=== PATIENT | female | born 2000 | race Caucasian/White ===

== ENCOUNTER → 2021-10-24 | Outpatient (CLI) | payer OTHER ==
[~2021-10-24] MED LIST: MOTRIN 400400 MG/TAB PO; TYLENOL 325MG325 MG PO
== END ==
LOC: COL.VAS 13:30
DX: R00.0 Tachycardia, unspecified (principal)

== ENCOUNTER 2021-11-08 05:15 | Inpatient (IN) | payer OTHER ==
[2021-11-08] VITALS (43 sets, daily range): BP systolic 101–138; BP diastolic 55–88; PULSE 82–123; TEMP 97.5–98.1
[~2021-11-08] VITALS: Ht 157.5 cm; Wt 66.4 kg
[2021-11-08 08:23] LABS: BASO % 0.3 % (0.0-2.0); EOS % 0.1 % (0.0-4.0); HEMATOCRIT 39.3 % (37.0-47.0); HEMOGLOBIN 13.1 g/dl (12.5-16.0); LYMPH # 1.8 K/mm3 (1.2-3.4); LYMPH % 17.1 % (20.0-51.0); MEAN CELL VOLUME 83 fl (80.0-100.0); MEAN CORPUSCULAR HEMOGLOBIN 28 pg (27-31); MEAN CORPUSCULAR HGB CONC 33 g/dl (33.0-37.0); MONO # 0.6 K/mm3 (0.1-0.6); MONO % 5.5 % (1.7-9.3); PLATELET COUNT 332 K/mm3 (130-400); RED BLOOD COUNT 4.73 M/mm3 (4.10-5.30); REDCELL DISTRIBUTION WIDTH-CV 18.3 % (11.5-14.5)
[2021-11-08 08:28] LABS: TRICYCLIC ANTIDEPRESS URINE NEGATIVE
[2021-11-08] MEDS ORDERED: PRENATAL TABLET PO (10:55)
[2021-11-08] MEDS ORDERED: NATURAL IRON65 MG PO (10:56)
[2021-11-08] MEDS ORDERED: COLACE 100100 MG/CAP PO (10:57)
[2021-11-09 04:00] VITALS: BP 98/53; PULSE 110; TEMP 98.4
[2021-11-09] MEDS ORDERED: MOTRIN 800800 MG/TAB PO (05:59)
[2021-11-09 09:00] VITALS: BP 114/72; PULSE 101; TEMP 97.3
[2021-11-09 17:00] VITALS: BP 95/60; PULSE 87; TEMP 97.7
[2021-11-09 20:45] VITALS: BP 94/54; PULSE 93; TEMP 98.1
[2021-11-10 08:00] VITALS: BP 109/75; PULSE 112; TEMP 97.7
== END 2021-11-10 16:05 | disposition home or self-care (01) | DRG 807 ==
LOC: LDRO 05:15 → LDR 05:47 → LDRO 07:08 → LDR 07:09 → OB 07:09
PROVIDERS: Obstetrics & Gynecology; ADMIT Obstetrics & Gynecology
PROC: 10E0XZZ Delivery of Products of Conception, External Approach (ICD-10-PCS; principal; 2021-11-08)
PROC: 0KQM0ZZ Repair Perineum Muscle, Open Approach (ICD-10-PCS; 2021-11-08)
PROC: 10907ZC Drainage of Amniotic Fluid, Therapeutic from Products of Conception, Via Natural or Artificial Opening (ICD-10-PCS; 2021-11-08)
DX: O99.324 Drug use complicating childbirth (principal); Z37.0 Single live birth; O77.0 Labor and delivery complicated by meconium in amniotic fluid; F12.90 Cannabis use, unspecified, uncomplicated; O70.1 Second degree perineal laceration during delivery; Z3A.37 37 weeks gestation of pregnancy; Z23 Encounter for immunization
CPT/HCPCS: J2405; J2590; J7120